=== PATIENT | male | born 1965 | race Caucasian/White ===

== ENCOUNTER → 2023-08-01 12:03 | Outpatient (REF) | payer OTHER, SELFPAY | LOC: RAD 12:03 | PROVIDERS: ATTENDING PHYSICIAN Nurse Practitioner Family; FAMILY PHYSICIAN Family Medicine | DX: M25.512 Pain in left shoulder (principal) | CPT/HCPCS: 73030 ==

== ENCOUNTER → 2024-05-04 06:45 | Outpatient (REF) | payer OTHER, SELFPAY | LOC: MRI 06:45 | PROVIDERS: ATTENDING PHYSICIAN Orthopaedic Surgery; FAMILY PHYSICIAN Family Medicine | DX: M75.41 Impingement syndrome of right shoulder (principal) | CPT/HCPCS: 73221 ==

== ENCOUNTER → 2024-08-20 16:09 | Outpatient (REF) | payer OTHER, SELFPAY | LOC: RCS 16:09 | PROVIDERS: ATTENDING PHYSICIAN Nurse Practitioner Family; PRIMARYCARE PHYSICIAN Family Medicine | DX: I15.8 Other secondary hypertension (principal); Z01.812 Encounter for preprocedural laboratory examination | CPT/HCPCS: 93005 ==